=== PATIENT | female | born 1955 ===

== ENCOUNTER → 2017-05-08 | Day surgery (SDC) | payer MEDICARE ==
[~2017-05-08] MED LIST: Ferric Subsulfate Sol(60 mL) ONE; Lactated Ringer's 1,000 ML IV ONE; Lactated Ringer's 1,000 ML IV SCH; Midazolam 2 MG/2 ML VIAL ONE; Propofol 10 mg/ml Inj (20 ML) ONE; Strong Iodine Topical Sol. 5%-10% ONE
[2017-05-08 08:04] VITALS: BMI 34.9
[2017-05-08 12:28] VITALS: RESP 18
--- NOTE | 2017-05-08 13:13 | OP ---
PROCEDURE DATE: PREOPERATIVE DIAGNOSES: Postmenopausal bleed, attempted to biopsy the patient in the office. She was unable to tolerate the procedure. POSTOPERATIVE DIAGNOSES: Postmenopausal bleed, attempted to biopsy the patient in the office. She never tolerated the procedure. OPERATION PERFORMED : Hysteroscopy and dilatation and curettage. SURGEON: Noah Soriano MD TYPE OF ANESTHESIA: General. ANESTHESIA ADMINISTERED BY: Stefan Cisse MD ESTIMATED BLOOD LOSS: Minimal. URINE OUTPUT: The patient was straight cath prior to starting the procedure. INTRAVENOUS FLUID INTAKE: The patient received 300 mL of D5 LR intraoperatively. OPERATIVE FINDINGS: Normal external female genitalia, urethra normal, cervix smooth, vagina pink, uterus approximately cm, on hysteroscopy, both ostia were visualized. No polyps noted. DESCRIPTION OF PROCEDURE: After informed consent was obtained, the patient was taken to the operating room where she was given general anesthesia. The patient was then prepped in the normal sterile fashion. A weighted speculum was then inserted into the vagina. The cervix was visualized and grasped with single tooth tenaculum. The cervix was then gently dilated. Hysteroscope was inserted into the uterine cavity with the findings noted above. Both ostia were noted. No fibroids, no polyps and no lesions identified. A hysteroscope was then removed from the uterus. A sharp curettage was performed. Endometrial curettings were sent to pathology. All instruments were then removed from the vagina and hemostasis was noted. The patient was awaken from general anesthesia and taken to recovery room in a wake and stable condition. All sponge, needle, and instrument counts were correct x2. Noah Soriano MD
[2017-05-08 13:14] VITALS: BP 132/67; PULSE 50; TEMP 97.4; O2SAT 98
--- NOTE | 2017-05-08 21:50 | CARD ---
APPROVED REPORT EKG Measurement Heart [id number] <Conclusion> Sinus bradycardia Otherwise normal ECG
== END | disposition home or self-care (01) ==
LOC: H.OPSURG 07:57
PROVIDERS: ATTEND Obstetrics & Gynecology Gynecology
DX: N92.1 Excessive and frequent menstruation with irregular cycle (principal); I10 Essential (primary) hypertension; N95.0 Postmenopausal bleeding; Z78.0 Asymptomatic menopausal state
CPT/HCPCS: 58558; 88305; 93005; J1885; J2001; J2250; J2704; J3010; J7030; J7120